=== PATIENT | male | born 1995 | race Hispanic/Latino ===

== ENCOUNTER 2025-08-05 11:28 | Emergency (ER) | payer OTHER ==
[~2025-08-05] VITALS: Ht 180.3 cm; Wt 113.4 kg
--- NOTE | 2025-08-05 11:41 | ERN ---
ED Note History of Present Illness Stated Complaint: RT ARM PAIN, FX 2 DAYS AGO Chief Complaint: Arm Swelling/Redness Time Seen by MD: 11:34 Dictation: PATIENT IS A 29-YEAR-OLD MALE WITH COMPLAINTS OF HAVING A RIGHT FOREARM FRACTURE THAT WAS ONSET WAS TUESDAY. HE WAS TREATED IN [facility] EM[facility] ROOM X-RAYS WERE DONE WITH THE DISC PROVIDED TO THE PATIENT, NORCO WAS GIVEN FOR PAIN. HE WAS REFERRED TO A PHYSICIAN IN [place] HOWEVER HE STATES HE LIVES IN [place] AND WOULD LIKE A REFERRAL HERE. SPLINT IS IN PLACE TO RIGHT ARM DISTAL NEUROVASCULAR CMS INTACT. HE STATES HE ONLY TOOK TYLENOL THIS MORNING BECAUSE HE DID NOT WANT TO TAKE THE NORCO. Past Medical History RN Note Reviewed/Agreed w/PFSH: Yes Review of System Dictation CONSTITUTIONAL: NEGATIVE EXCEPT FOR HPI HEAD/FACE: NEGATIVE EXCEPT FOR HPI EENT: NEGATIVE EXCEPT FOR HPI RESPIRATORY: NEGATIVE EXCEPT FOR HPI GASTROINTESTINAL/ABDOMINAL: NEGATIVE EXCEPT FOR HPI GENITOURINARY: NEGATIVE EXCEPT FOR HPI MUSCULOSKELETAL: NEGATIVE EXCEPT FOR HPI RIGHT ARM PAIN WITH SPLINT IN PLACE INTEGUMENTARY: NEGATIVE EXCEPT FOR HPI NEUROLOGICAL/PSYCH: NEGATIVE EXCEPT FOR HPI HEMATOLOGIC/LYMPHATIC: NEGATIVE EXCEPT FOR HPI ALL SYSTEMS NEGATIVE, EXCEPT NOTED ABOVE. 13 POINT REVIEW OF SYSTEMS ASSESSED AND ALL NEGATIVE EXCEPT FOR ABOVE. Physical Exam Dictation VITAL SIGNS REVIEWED GENERAL APPEARANCE: ALERT, ORIENTED X 3, NO ACUTE DISTRESS, WELL DEVELOPED, N OURISHED. PATIENT REFUSED P.R.N. ANALGESIA STATES HE HAS TYLENOL AND NORCO AT HOME HEAD AND FACE: NON-TRAUMATIC. EYES: PERRL, PINK CONJUNCTIVAS, EYELID NO TRAUMA, ANTERIOR CHAMBER WITH ARCUS SENILIS. EARS: PINNAS INTACT AND NO SIGNS OF TRAUMA OR ERYTHEMA EAR CANALS CLEAR AND NO DISCHARGE TM NO ERYTHEMA NOSE: NO DISCHARGE, NO BLEEDING. OROPHARYNX: MOUTH NORMAL, TONGUE PINK, PHARYNX CLEAR,NO ERYTHEMA, TONSILS NO EXUDATES, NO ABSCESSES NOTED, MUCOUS MEMBRANE MOIST NECK: SUPPLE, NON-TENDER, NO THYROMEGALY, NO MASSES, NO JVD, NO BRUITS BREAST:DEFERRED CHEST:NO TENDERNESS, NO CREPITUS, NO PARADOXICAL MOVEMENT, NO RETRACTIONS LUNGS:CLEAR, WELL-VENTILATED, SYMMETRIC, NO RALES, NO WHEEZING, NO RHONCHI, NO STRIDOR, GOOD BREATH SOUNDS BILATERALLY HEART: REGULAR RATE, REGULAR RHYTHM, NO MURMUR, NO GALLOPS VASCULAR: NO PERIPHERAL EDEMA, ABDOMEN: SOFT, POSITIVE BOWEL SOUNDS, NONDISTENDED, NO GUARDING, NONTENDER, NO REBOUND, NO MASSES NO HEPATOMEGALY, NO SPLENOMEGALY, NO CARDOZA'S SIGN, NO HERNIAS. RECTAL: DEFERRED GENITAL: DEFERRED NEUROLOGICAL: NORMAL SPEECH, MOTOR FUNCTION INTACT, SENSORY FUNCTION INTACT MUSCULOSKELETAL: NECK NONTENDER, FULL RANGE OF MOTION, BACK NONTENDER, FULL RANGE OF MOTION, EXTREMITIES: R RIGHT POSTERIOR LONG-ARM SPLINT IN PLACE. SLING ON. NEUROVASCULAR CMS INTACT TO HAND. SKIN: COLOR PINK, DRY, NO TURGOR, NO RASH, NO LACERATIONS, NO ABRASIONS, NO CONTUSIONS. LYMPHATIC: DEFERRED Results (Laboratory/Radiology) Labs Reviewed?: Yes ED Course ED Course 1135/NO LABS OR IMAGING INDICATED. PATIENT REFUSED P.R.N. ANALGESIA STATES HE HAS TYLENOL AND NORCO AT HOME. HE WAS REFERRED TO DR. SAURABH BARTON TO FOLLOW UP OUTPATIENT Medical Decision Making MDM MEDICAL DISCHARGE MAKING WAS HPI AND PHYSICAL EXAMINATION NEUROVASCULAR CMS INTACT TO RIGHT HAND POSTERIOR LONG-ARM SPLINT IN PLACE WITH SLING FROM PRIOR HOSPITAL VISIT. PATIENT REFUSED P.R.N. ANALGESIA STATES HE HAS NORCO AND TYLENOL REFERRED TO ORTHOPEDICS DX & DISP Disposition: Discharge Departure Impression: Primary Impression: Right arm pain Condition: Stable Additional Instructions: FOLLOW-UP WITH PRIMARY CARE PROVIDER IN 1 TO 2 DAYS. TAKE MEDICATIONS DIRECTED HERE IN THE EMERGENCY ROOM. OKAY TO CONTINUE HOME MEDICATIONS UNLESS OTHERWISE DISCUSSED DURING YOUR VISIT IN THE EMERGENCY ROOM TODAY. RETURN TO YOUR NEAREST EMERGENCY ROOM IF SYMPTOMS WORSEN OR IF THERE IS NO IMPROVEMENT. CALL 911 IF YOU NEED IMMEDIATE ASSISTANCE. TAKE TYLENOL OR MOTRIN [id number] NEEDED AND IF NO CONTRAINDICATIONS ARE PRESENT. INCREASE ORAL HYDRATION. A WOUND CULTURE OR URINE CULTURE WAS ORDERED HERE IN THE EMERGENCY ROOM DEPARTMENT PLEASE FOLLOW-UP WITH PRIMARY CARE PROVIDER AND ADVISE THEM TO GET REPEAT PORTS FROM OUR FACILITY. IF YOU HAD ANY CHARITO WRAP/SPLINTS THAT WERE APPLIED HERE, PLEASE DO NOT REMOVE THEM UNTIL YOU SEE YOUR PRIMARY CARE OR SPECIALTY. SPLINT AND NO WEIGHT-BEARING UNTIL CLEARED BY ORTHOPEDICS, CALL HIM FOR AN APPOINTMENT TODAY. TAKE YOUR RECORDS FROM [facility] EMERGENCY ROOM VISIT TO INCLUDE CD OF X-RAYS CONTINUE WITH TYLENOL AND NORCO AT HOME NEEDED FOR PAIN. Referrals: SELF,REFERRAL (PCP) LINDA BARTON MD Time of Disposition: 11:39 I have reviewed the case, and I agree with, Diagnosis and Plan CALOS BOONE NP Aug 05, 2025 11:41
[2025-08-05 11:58] VITALS: BP 123/87; PULSE 87; RESP 16; TEMP 98.8; O2SAT 96
[2025-08-12] MEDS ORDERED: HYDR-4060 PO (11:42)
[2025-08-12] MEDS ORDERED: ACET-66 PO (11:42)
[2025-08-12] MEDS ORDERED: ROSU10TA72 PO (11:42)
[2025-08-12] MEDS ORDERED: IBUP-2784 PO (11:42)
== END 2025-08-05 13:18 | disposition home or self-care (01) ==
LOC: EDH 11:28
DX: M79.601 Pain in right arm (principal)
CPT/HCPCS: 29105; 99282; 99283

== ENCOUNTER 2025-08-13 06:19 | Day surgery (SDC) | payer OTHER ==
[2025-08-12 11:16] LABS: IMMATURE GRANULOCYTE ABSOLUTE 0.05 K/uL (0-1); NUCLEATED RED BLOOD CELLS 0.0 % (0.0-0.19); PLATELET COUNT (AUTO) 359 K/uL (130-400); RED BLOOD CELL COUNT(AUTO) 5.53 MIL/uL (4.50-6.20); RED CELL DISTRIBUTION WIDTH 12.4 % (11.0-15.5); WHITE BLOOD COUNT (AUTO) 10.0 K/uL (4.8-10.8)
[2025-08-12 11:28] VITALS: BP 121/80; PULSE 75; RESP 13; TEMP 97.9
[2025-08-12 11:28] LABS: CREATININE 1.0 mg/dL (0.5-1.3); GLOMERULAR FILTR. RATE CALC 106.0 mL/min (>90); GLUCOSE,RANDOM 98.0 mg/dL (70-105); SODIUM SERUM 138.0 mmol/L (136-145); UREA NITROGEN, BLOOD 13.0 mg/dL (7-18)
[2025-08-13] VITALS (17 sets, daily range): BP systolic 110–145; BP diastolic 50–87; PULSE 84–101; RESP 11–18; TEMP 97.3–98
[~2025-08-13] VITALS: Ht 180.3 cm; Wt 99.1 kg
[~2025-08-13 06:19] MED LIST: ACET-66 PO; HYDR-4060 PO; IBUP-2784 PO; ROSU10TA72 PO
[2025-08-13] MEDS ORDERED: LACTATED RINGERS 1000ML 1,000 ML IV ONE (07:09)
[2025-08-13] MEDS ORDERED: SUCCINYLCHOLINE CHLORIDE 20 MG/ML 10 ML VIAL ONE (07:10)
[2025-08-13] MEDS ORDERED: NEOSTIGMINE METHYLSULFATE 1MG/ML IV ONE (07:10)
[2025-08-13] MEDS ORDERED: LIDOCAINE PF 100MG/5ML (2%) SYRINGE 5ML ONE (07:10)
[2025-08-13] MEDS ORDERED: GLYCOPYRROLATE 0.2 MG/ML 5 ML VIAL ONE (07:10)
[2025-08-13] MEDS ORDERED: MIDAZOLAM HCL 1 MG/ML 2ML VIAL ONE (07:11)
[2025-08-13] MEDS ORDERED: FAMOTIDINE 20MG VIAL IV ONE (07:38)
[2025-08-13] MEDS ORDERED: SUGAMMADEX SODIUM 200 MG/2 ML VIAL IV ONE (07:38)
[2025-08-13] MEDS ORDERED: HYDR-4060 PO (12:02)
[2025-08-13] MEDS ORDERED: CEPH500B PO (12:02)
--- NOTE | 2025-08-13 12:29 | OP ---
Operative Note: DATE OF PROCEDURE: 08/13/25 SURGEON: LINDA BARTON MD GENERAL ASSEMBLER INSTALLER: [Alisson Macias CFA] ANESTHESIA: [General anesthesia plus regional block] ANESTHESIOLOGIST/KIDS ACTIVITIES COACH: [Yaron Huang CRNA] PREOPERATIVE DIAGNOSIS: [Comminuted fracture mid shaft right humerus, displaced, closed] POSTOPERATIVE DIAGNOSIS: [Same] IMPLANTS: [DEPUY SYNTHES. Humeral nail size 9 x 230 mm, 10 mm end cap. Proximal locking screw 28 x 4 mm. Distal locking screw 24 x 4 mm ] PROCEDURE: [Right mid shaft humerus fracture intramedullary nail fixation] ESTIMATED BLOOD LOSS: [150 mL] INDICATIONS: [The patient is a 29-year-old male status post fall sustaining above-mentioned injury several days ago. Patient is brought to the operating room for stabilization with a an intramedullary nail. Procedure understood, risks, benefits and possible complications and the patient agreed to sign the consent form.] DESCRIPTION OF PROCEDURE: [After adequate general anesthesia was achieved and regional block obtained the patient was placed in the Beech chair position and the right upper extremity was prepped and draped in the usual manner. After identification of the bony landmarks an incision was made in the anterolateral corner of the acromion through the skin followed by dissection of the subcutaneous tissue. The deltoid muscle was incised along the fibers from the anterolateral portion of the shoulder entering into the subacromial space which had a small amount of bursal tissue which was removed. The rotator cuff was easily identified and then we proceeded to made a longitudinal incision of this muscle to enter into the joint at the level just posterior of the greater tuberosity. We proceeded then to identify the lateral border of the articular cartilage of the humeral head as well as the insertion site of the rotator cuff and subperiosteally exposed this area. A guidewire was then inserted proximally into the canal and with the use of the C arm we visualized the position and then we made a starting hole with the #10 mm reamer to enter into the proximal aspect of the bone and then after this was achieved we proceeded to remove the guidewire and a beaded guidewire was then inserted going straight into the canal and across the fracture all the way to the distal aspect of the humeral canal. Then we proceeded to ream from a size 7 to a size 10.5 mm. The 9 mm humeral nail was then inserted holding reduction and after this was inserted all the way down we proceeded then to check with the x-rays and proximal locking was achieved through the same incision with a bicortical screws previous drilling of the cortices. After x-rays were shown that the screws were in adequate position we proceeded then to remove the inserting guide, irrigation of the wound was carried down with antibiotic solution and a 10 mm cap was then inserted into the nail to cover the entry. The wound was irrigated and we addressed then the distal fixation with the use of the C arm and placement of the arm in abduction we were able to identify the anteromedial middle hole and after an incision was carried out in the medial aspect of the distal arm through the skin and blunt dissection was carried down through the soft tissues down to the bone we were able to apply a drill going through the hole and both cortices and after measuring we proceeded to apply a cortical screw. We then checked the fracture site noticing that the comminuted fragment displaced slightly slower with the alignment of the fracture was adequate and the fixation was solid distally. X-rays were then taken from the proximal and distal fragments with AP and lateral views as well as the fracture site. The wounds were copiously irrigated with antibiotic solution and we proceeded then to close the proximal wound with repair of the rotator cuff incision with #1 Ethibond sutures in a simple fashion. The deltoid was then reapproximated with # 1 Vicryl sut ures crossed stitches. The subcutaneous tissue was closed in all the wounds with 2-0 Monocryl inverted stitches and the skin was closed with 3-0 Monocryl subcuticularly. The wounds were covered with a soft dressing. The patient's drapes were then removed and and the patient was then placed in an arm sling and transferred to the hospital bed and then taken to the recovery room for follow-up by anesthesia. There were no complications during the procedure] LINDA BARTON MD Aug 13, 2025 12:29
--- NOTE | 2025-08-13 13:48 | NUR ---
Full and complete discharge instructions given to Patient and Family both verbally and in writing. Explained Surgical procedure precautions and follow up. Shoulde incision sites clean dry and intact. Sing intact as ordered. Patient remains neurovascularly intact. No evidence of bleeding, bruising or hematoma. Ice packs provided. All questions answered. PIV removed with catheter tip intact. Family at bedside appearing supportive. W/C to POV with Family to ho
[2025-08-14] MEDS ORDERED: KETO10 PO (03:58)
--- NOTE | 2025-08-15 11:23 | HMCIMG ---
HUMERUS 2+VWS RT REASON: IM nail LT humerus FX TECHNIQUE: 9 views were obtained. FINDINGS: Patient is undergoing ORIF with placement of intramedullary sampson in the left humerus.. Fluoroscopy time 4 minutes 9 seconds IMPRESSION: Details of the finding in the operative dose.
== END 2025-08-13 13:50 | disposition home or self-care (01) ==
LOC: DAH 06:19
PROVIDERS: ATTEND Orthopaedic Surgery
DX: S42.351A Displaced comminuted fracture of shaft of humerus, right arm, initial encounter for closed fracture (principal); I10 Essential (primary) hypertension; W19.XXXA Unspecified fall, initial encounter; Y93.89 Activity, other specified; Y92.89 Other specified places as the place of occurrence of the external cause; Y99.8 Other external cause status; E66.9 Obesity, unspecified; Z68.28 Body mass index [BMI] 28.0-28.9, adult; G89.18 Other acute postprocedural pain
CPT/HCPCS: 80048; 85025; 36415; 24516; 64415; 73060; C1713 ×3; A4663; J7120 ×2; A4565; J1308; J3010 ×3; J0690 ×3; J1100; J0330; J3490 ×4; J2003; J2250; J2704; J2405; J2710; A6204; C1762; C1769; A4649 ×3; A4930; A5120; A4215 ×2; A4213; A4222; A4221; A4216; A4223 ×2

== ENCOUNTER 2025-08-14 02:28 | Emergency (ER) | payer OTHER ==
[~2025-08-14] VITALS: Ht 180.3 cm; Wt 99.8 kg
[~2025-08-14 02:28] MED LIST changes: -ACET-66 PO; +CEPH500B PO; -ROSU10TA72 PO; +ROSU10TA98 PO
--- NOTE | 2025-08-14 03:33 | ERN ---
ED Note History of Present Illness Stated Complaint: C/O PAIN TO RT SHOULDER/ARM AFTER SX YESTERDAY Chief Complaint: Post-Op Problem Time Seen by MD: 02:52 Dictation: This is a 29-year-old male who had right shoulder surgery by Dr. Barton. For postop pain he was given hydrocodone and he followed the instructions and took 2 pills for pain relief but patient stated that it did not help him and it was so intense and excruciating that he came to the ER with his mother for further evaluation. He also reports some burning sensation in his hand. Temperature 99 pulse 105 respirations 20 blood pressure normal pulse oximetry 97% on room air Allergies: Coded Allergies: No Known Allergies (Unverified Allergy, Unknown, 08/05/25) Home Meds Active Scripts Ketorolac Tromethamine (Toradol) 10 Mg Tab, 10 MG PO QID for pain for 5 Days, #20 TAB 0 Refills Prov:MALVIN AGARWAL MD 08/14/25 Cephalexin Monohydrate (Keflex) 500 Mg Cap, 500 MG PO Q8H for surgical prophylaxis for 2 Days, #6 CAP 0 Refills Prov:LINDA BARTON MD 08/13/25 Hydrocodone/Acetaminophen (Hydrocodon-Acetaminophen 5-325) 5 Mg-325 Mg Tablet, 1-2 TAB PO Q8H for Acute post-op pain for 7 Days, #42 TAB 0 Refills Prov:LINDA BARTON MD 08/13/25 Reported Medications Ibuprofen (Ibuprofen 200 mg Tablet) 200 Mg Tablet, 400 MG PO TID PRN for PAIN, TAB 08/12/25 Rosuvastatin Calcium (Rosuvastatin Calcium) 10 Mg Tablet, 10 MG PO HS, TAB 08/12/25 Discontinued Reported Medications Hydrocodone/Acetaminophen (Hydrocodon-Acetaminophen 5-325) 5 Mg-325 Mg Tablet, 1 EACH PO TID PRN for PAIN, TAB 08/12/25 Acetaminophen (Acetaminophen) 500 Mg Tablet, 1000 MG PO TID PRN for PAIN, TAB 08/12/25 Past Medical History Past Medical History: No Pertinent History Surgical History: Other Family History: Negative RN Note Reviewed/Agreed w/PFSH: Yes Review of System Dictation Constitutional: Negative for fever,chills, and weight loss Eyes: Negative for injury, pain,redness, and discharge ENT: Negative for injury,pain or swelling Cardiovascular: Negative for chest pain, palpitations, and edema Respiratory: Negative for shortness of breath, cough, and wheezing, Abdomen/GI: Negative for abdominal pain, nausea, vomiting, diarrhea, and constipation Back: Negative for injury and pain : Negative for injury, bleeding and discharge MS/Extremity: Negative for injury and deformity severe excruciating postoperative pain of the right shoulder entire arm Skin: Negative for rash, and discoloration Neuro: Negative for headache, weakness, numbness, tingling, and seizure Psych: Negative for suicide ideation, homicidal ideation, and hallucinations Initial Vital Sign VS Vital Signs Date Time Temp Pulse Resp B/P (MAP) Pulse Ox O2 Delivery O2 Flow Rate FiO2 08/14/25 02:31 99.0 105 20 97 Room Air 08/14/25 05:05 108/62 0 21 Physical Exam Dictation General: awake, alert, NAD obese male Head/Face: Normocephalic, atraumatic Eyes: PERRL, EOMI, vision at baseline ENT: oral cavity clear, TMs clear, no signs of infection Neck: Trachea midline, supple, no nuchal rigidity Cardiovascular: RRR, normal S1/S2, No MRGs, no JVD Respiratory: CTAB, no respiratory distress, No rales or wheezes Abdomen: Soft, non-tender, non-distended, normal bowel sounds, no guarding or rebound. Skin: Warm, dry, normal turgor, no rash MS/Extremity: Pulses equal, no cyanosis, neurovascular intact, FROM right arm in his sling appears slightly lower than the left shoulder no purulent drainage hematoma or unusual swellings. Neuro: COAx4, GCS 15, strength 5/5, CN 2-12 intact, normal cerebellar exam, normal gait, Psych: Normal behavior, mood, and affect normal Extremities-trace edema without any palpable cords, Homans sign is negative ED Course ED Course Orders Procedure Category Date Status Time Ketorolac PHA 08/14/25 Complete Tromethamine 30mg/Ml 03:30 Hydromorphone 0.5mg PHA 08/14/25 Complete Syg (Dilaudid 0.5mg 05:00 Ondansetron Odt 4mg PHA 08/14/25 Complete Tab (Zofran 4mg Odt) 05:00 Current Medications Medications (Trade) Dose Ordered Sig/Yaron Route PRN Reason Start Time Stop Time Status Last Admin Dose Admin Hydromorphone HCl (DiLAUDid 0.5MG INJ) 0.5 mg ONCE ONCE IM 08/14/25 05:00 08/14/25 05:02 DC 08/14/25 04:49 Ketorolac Tromethamine (toRADol) 30 mg ONCE ONCE IM 08/14/25 03:30 08/14/25 03:31 DC 08/14/25 03:30 Ondansetron HCl (zoFRAN 4MG ODT) 4 mg ONCE ONCE SL 08/14/25 05:00 08/14/25 05:02 DC 08/14/25 04:48 Vital Signs Date Time Temp Pulse Resp B/P (MAP) Pulse Ox O2 Delivery O2 Flow Rate FiO2 08/14/25 05:05 98.8 84 16 108/62 97 Room Air* 0 21 08/14/25 02:31 99.0 105 20 97 Room Air Medical Decision Making MDM Differential diagnosis: Postop pain, hematoma, neuropathic pain, entrapment syndrome This is a 29-year-old male who had right shoulder surgery by Dr. Barton. For postop pain he was given hydrocodone and he followed the instructions and took 2 pills for pain relief but patient stated that it did not help him and it was so intense and excruciating that he came to the ER with his mother for further evaluation. He also reports some burning sensation in his hand. Temperature 99 pulse 105 respirations 20 blood pressure normal pulse oximetry 97% on room air A trial of Toradol was given IM. After 30 minutes patient had significant improvement in the pain Patient will be discharged to home on a prescription of Toradol for a few days Rationale: Tests considered and ordered secondary to shared decision making include: Previous outside records reviewed: Old ER visits. Risk of complication and/or morbidity or mortality of patient management: None Medications-Per medication reconciliation Need for hospitalization: Patient does not meet criteria for hospitalization. Need for emergency major/minor surgery: No There are no social concerns with this patient. Prescription drug management Prescriptions will include symptomatic care Patient's prior external medical records from other ER visits were reviewed by me as indicated. Prior testing and results from previous visits were reviewed. Prior tests were taken into account with medical decision making and resource utilization, independent historian/historians were used to obtain complete medical history. I independently interpreted the test that were performed, results were reviewed by me and considered findings on radiology if ordered. Medical management and examination interpretation discussions were had by me with other qualified healthcare professionals as indicated for the patient's care. Problem List Problem List: (1) Postoperative pain (2) Right shoulder pain DX & DISP Disposition: Discharge Departure Impression: Primary Impression: Right shoulder pain Additional Impression: Postoperative pain Condition: Stable Scripts Ketorolac Tromethamine (Toradol) 10 Mg Tab 10 MG PO QID for pain for 5 Days, #20 TAB 0 Refills Prov: MALVIN AGARWAL MD 08/14/25 Additional Instructions: Patient and the caregiver have been informed of all the diagnostic tests and the imaging conducted during the today's visit to the emergency room and has verba lized understanding of the results I have personally reviewed and interpreted all diagnostic exams performed here in the ER today as well as the vital signs documented by the nursing staff. The patient is now being discharged to home and should follow up with the primary care physician or the specialist as directed by the ER staff. Follow-up with primary care provider in 1 to 2 days. Take medications as directed here in the emergency room. Okay to continue home medications unless otherwise discussed during your visit in the emergency room today. Return to your nearest emergency room if symptoms worsen or if there is no improvement. Call 911 if you need immediate assistance. Take Tylenol or Motrin [id number] as needed and if no contraindications are present. Increase oral hydration. A wound culture or urine culture was ordered here in the emergency room department please follow-up with primary care provider and advise them to get repeat ports from our facility. If you had any Hammad wrap/splints t hat were applied here, please do not remove them until you see your primary care or specialty. Referrals: BELL BALDERAS (PCP) MALVIN AGARWAL MD Aug 14, 2025 03:32
[2025-08-14] MEDS ORDERED: KETO10 PO (03:58)
[2025-08-14 05:05] VITALS: BP 108/62; PULSE 84; RESP 16; TEMP 98.8; O2SAT 97
== END 2025-08-14 05:07 | disposition home or self-care (01) ==
LOC: EDH 02:28
DX: M25.511 Pain in right shoulder (principal); G89.18 Other acute postprocedural pain
CPT/HCPCS: 99284; 96372 ×2; J1885; J1171